=== PATIENT | male | born 1940 | race Caucasian/White ===

== ENCOUNTER 2020-05-31 23:40 | Day surgery (SDCO) | payer MEDICARE ==
[~2020-05-31 23:40] MED LIST: ANTIVERT25 MG PO; ASPIRIN EC81 MG PO; BETAPACE80 MG PO; MIDODRINE HCL10 MG PO; NORCO 5-325 TA1 EACH PO; TAMSULOSIN HCL0.4 MG PO
[2020-06-01 00:54] LABS: BASOPHIL 0.1 % (0-2); EOSINOPHIL 0.9 % (0-7); HCT 33.7 % (42.0-52.0); HGB 10.6 g/dl (13.2-18.0); LYMPHOCYTE 16.1 % (15-48); MCH 30.1 pg (25.0-31.0); MCHC 31.5 g/dL (32.0-36.0); MCV 95.7 fL (78.0-100.0); MONOCYTE 9.3 % (0-12); NEUTROPHIL 73.1 % (41-80); NRBC 0; PLT 126 K/uL (150-400); RBC 3.52 M/uL (4.70-6.00); RDW 13.9 % (11.5-14.0); WBC 8.5 K/uL (4.0-10.5)
[2020-06-01 01:03] LABS: BILIRUBIN NEGATIVE (NEGATIVE); BLOOD 3+ Ery/uL (NEGATIVE); CLARITY CLEAR (CLEAR); COLOR YELLOW (YELLOW); GLUCOSE (U) NORMAL (NORMAL); LEUKOCYTES 2+ Leu/uL (NEGATIVE); NITRITE NEGATIVE (NEGATIVE); PROTEIN NEGATIVE (NEGATIVE); UROBILINOGEN 0.2 mg/dL (0.2-1.0)
[2020-06-01 01:04] LABS: INR 1.12 (0.9-1.2); PROTHROMBIN TIME 13.7 SECONDS (11.4-13.6); PTT 29.5 SECONDS (22.2-34.7)
[2020-06-01 01:10] LABS: BACTERIA 1+; TRANSITIONAL EPITHELIAL CELLS RARE; URINARY WBC 20-50; YEAST PRESENT
[2020-06-01 01:14] LABS: ALBUMIN 3.1 g/dL (3.4-5.0); BILIRUBIN - TOTAL 1.1 mg/dL (0.2-1.0); BUN/CREAT RATIO (CALC) 29.2 RATIO; CREATININE 1.3 mg/dL (0.67-1.17); GLOBULIN (CALCULATION) 3.3 g/dL; MAGNESIUM 2.1 mg/dL (1.8-2.4); TOTAL PROTEIN 6.4 g/dL (6.4-8.2)
[2020-06-01 01:18] LABS: PRO-BNP 545 pg/mL (<450)
[2020-06-01 01:21] LABS: LACTIC ACID 0.3 mmol/L (0.4-1.9)
[2020-06-01] MEDS ORDERED: ANTIVERT25 MG PO (02:37)
[2020-06-01] MEDS ORDERED: NORCO 5-325 TA1 EAC1 PO (03:01)
[2020-06-02 05:50] LABS: BASOPHIL 0.3 % (0-2); EOSINOPHIL 1.1 % (0-7); HCT 33.7 % (42.0-52.0); HGB 10.6 g/dl (13.2-18.0); LYMPHOCYTE 11.3 % (15-48); MCH 30.2 pg (25.0-31.0); MCHC 31.5 g/dL (32.0-36.0); MONOCYTE 10.5 % (0-12); MPV 9.8 fL (6.0-9.5); NEUTROPHIL 76.2 % (41-80); NRBC 0; PLT 136 K/uL (150-400); RBC 3.51 M/uL (4.70-6.00); RDW 13.8 % (11.5-14.0); WBC 9.4 K/uL (4.0-10.5)
[2020-06-02 06:06] LABS: POTASSIUM 3.7 mmol/L (3.5-5.1)
[2020-06-02] MEDS ORDERED: CEFDINIR300 MG PO (15:35)
--- NOTE | 2020-06-02 17:24 | NUR ---
1630 PATIENT FAMILY NOTIFED THIS NURSE THAT THEY WHERE UNABLE TO CARE FOR THE PATIENT AT HOME, DUE TO SON HAVE KNEE AND HIP SURGERY AND REQUEST THAT THE PATIENT BE EVALUATED FOR IN PATIENT REHAB. [address]5 DR. PITT WAS NOTIFED AND CANCELLED THE DISCHARGE HOME, AND NEEDS TO BE EVALUATED BY PT/OT, AND DISCHARGE PLANNING FOR PLACEMENT IN REHAB FACILITY.
[2020-06-03 06:22] LABS: BUN/CREAT RATIO (CALC) 27.4 RATIO; CREATININE 1.13 mg/dL (0.67-1.17); POTASSIUM 3.8 mmol/L (3.5-5.1)
--- NOTE | 2020-06-03 11:35 | NUR ---
ACKNOWLEDGED ORDER FOR ORTHOPEDIC CONSULT WITH DR. GARNETT, SPOKE WITH NONI CASIANO WHO STATED SHE SPOKE WITH DR. GARNETT WHO STATED TO CONTINUE SLING AND SWATHE WITH PT.
--- NOTE | 2020-06-03 12:56 | NUR ---
PT REPORTS HE LIVES WITH SON IZZY SAL; ASSIT WITH [facility]; PLEASE ADVISE OF DISCHARGE NEEDS
--- NOTE | 2020-06-03 14:37 | NUR ---
06/03/2020 Mr. Myrick lives with his son. He has a cane. Kevin Myrick, son, , would like his father to have gisselle prior to returning home. Their robin choice is [facility]. Unfortunately, [facility] is only accepting patient's who live locally and they have a waiting list, per Carlos. A referral has been made to [facility]'s second choice.
[2020-06-04] MEDS ORDERED: NORVASC5 MG PO (13:12)
[2020-06-04] MEDS ORDERED: PANTOPRAZOLE SO40 MG PO (13:15)
== END 2020-06-04 20:35 ==
LOC: FER 23:40 → FMS 06-01 01:50
PROVIDERS: Emergency Medicine; Hospitalist; Internal Medicine; ADMIT Internal Medicine
DX: N30.00 Acute cystitis without hematuria (principal); B96.89 Other specified bacterial agents as the cause of diseases classified elsewhere; E86.0 Dehydration; G31.84 Mild cognitive impairment of uncertain or unknown etiology; G92 Toxic encephalopathy; N17.9 Acute kidney failure, unspecified; R53.81 Other malaise; S42.351A Displaced comminuted fracture of shaft of humerus, right arm, initial encounter for closed fracture; I48.0 Paroxysmal atrial fibrillation; I10 Essential (primary) hypertension; M10.9 Gout, unspecified; K21.9 Gastro-esophageal reflux disease without esophagitis; Z85.038 Personal history of other malignant neoplasm of large intestine; Z79.899 Other long term (current) drug therapy; Z90.49 Acquired absence of other specified parts of digestive tract; Z93.3 Colostomy status; Z20.828 Contact with and (suspected) exposure to other viral communicable diseases; W19.XXXA Unspecified fall, initial encounter; Y92.009 Unspecified place in unspecified non-institutional (private) residence as the place of occurrence of the external cause
CPT/HCPCS: 36415; 70450; 71045; 80048; 80053; 81001; 83605; 83735; 83880; 84145; 84484; 85025; 85610; 85730; 87088; 97110; 97116; 97162; 97530-GP; G0378; J0696; J1650; J7030; U0002

== ENCOUNTER 2020-06-26 16:33 | Inpatient (IN) | payer MEDICARE ==
[~2020-06-26 16:33] MED LIST changes: +CEFDINIR300 MG PO; +NORCO 5-325 TA1 EAC1 PO; +NORVASC5 MG PO; +PANTOPRAZOLE SO40 MG PO
[2020-06-26 17:17] LABS: BASOPHIL 0.1 % (0-2); EOSINOPHIL 0 % (0-7); HCT 41.5 % (42.0-52.0); HGB 12.7 g/dl (13.2-18.0); LYMPHOCYTE 3.5 % (15-48); MCH 28.9 pg (25.0-31.0); MCHC 30.6 g/dL (32.0-36.0); MCV 94.3 fL (78.0-100.0); MONOCYTE 3.6 % (0-12); NEUTROPHIL 91.6 % (41-80); NRBC 0; PLT 100 K/uL (150-400); RDW 13.8 % (11.5-14.0); WBC 14.1 K/uL (4.0-10.5)
[2020-06-26 17:21] LABS: INR 1.21 (0.9-1.2); PROTHROMBIN TIME 14.5 SECONDS (11.4-13.6); PTT 26.4 SECONDS (22.2-34.7)
[2020-06-26 17:31] LABS: ALBUMIN 2.7 g/dL (3.4-5.0); BILIRUBIN - TOTAL 0.9 mg/dL (0.2-1.0); C-REACTIVE PROTEIN 16.6 mg/dL (<=0.90); CREATININE 2.47 mg/dL (0.67-1.17); GLOBULIN (CALCULATION) 4.1 g/dL; POTASSIUM 5.5 mmol/L (3.5-5.1); TOTAL PROTEIN 6.8 g/dL (6.4-8.2)
[2020-06-26 17:35] LABS: PRO-BNP 525 pg/mL (<450)
[2020-06-26 17:37] LABS: LACTIC ACID 1.2 mmol/L (0.4-1.9)
[2020-06-26 18:38] LABS: BILIRUBIN NEGATIVE (NEGATIVE); BLOOD 2+ Ery/uL (NEGATIVE); COLOR YELLOW (YELLOW); GLUCOSE (U) NORMAL (NORMAL); LEUKOCYTES 1+ Leu/uL (NEGATIVE); NITRITE NEGATIVE (NEGATIVE); PROTEIN TRACE (LOW) mg/dL (NEGATIVE); UROBILINOGEN 0.2 mg/dL (0.2-1.0); pH 5.5 (5.0-9.0)
[2020-06-26 18:43] LABS: CLARITY HAZY (CLEAR)
[2020-06-26 18:44] LABS: BACTERIA 1+; SQUAMOUS EPITHELIAL CELLS RARE; YEAST PRESENT
[2020-06-27] MEDS ORDERED: DEXAMETHASONE 2M2 MG PO (02:30)
[2020-06-27] MEDS ORDERED: IMODIUM2 MG PO (02:32)
[2020-06-27] MEDS ORDERED: PRILOSEC20 MG PO (02:33)
[2020-06-27] MEDS ORDERED: ONDANSETRON ODT4 MG PO (02:35)
[2020-06-27] MEDS ORDERED: PROMETHEGA12.5 MG/SU PR (02:37)
[2020-06-27] MEDS ORDERED: TYLENOL325 M2 PO (02:39)
[2020-06-27] MEDS ORDERED: ASCORBIC ACID500 MG PO (02:40)
[2020-06-27] MEDS ORDERED: VITAMIN D3 COM1 EACH PO (02:45)
[2020-06-27] MEDS ORDERED: ZINC SULFATE220 M1 PO (02:46)
[2020-06-27 04:39] LABS: BASOPHIL 0.1 % (0-2); EOSINOPHIL 0 % (0-7); HCT 36.6 % (42.0-52.0); HGB 11.2 g/dl (13.2-18.0); LYMPHOCYTE 3.2 % (15-48); MCH 29.5 pg (25.0-31.0); MCHC 30.6 g/dL (32.0-36.0); MCV 96.3 fL (78.0-100.0); MONOCYTE 2.8 % (0-12); MPV 11.3 fL (6.0-9.5); NEUTROPHIL 92.9 % (41-80); NRBC 0; RDW 14.1 % (11.5-14.0); WBC 12.4 K/uL (4.0-10.5)
[2020-06-27 04:53] LABS: ALBUMIN 2.2 g/dL (3.4-5.0); BILIRUBIN - TOTAL 0.7 mg/dL (0.2-1.0); BUN/CREAT RATIO (CALC) 39.7 RATIO; CREATININE 1.84 mg/dL (0.67-1.17); GLOBULIN (CALCULATION) 3.6 g/dL; POTASSIUM 4.3 mmol/L (3.5-5.1); TOTAL PROTEIN 5.8 g/dL (6.4-8.2)
[2020-06-27 04:54] LABS: PLT 89 K/uL (150-400)
[2020-06-27 12:10] LABS: BUN/CREAT RATIO (CALC) 39.2 RATIO; CREATININE 1.58 mg/dL (0.67-1.17)
--- NOTE | 2020-06-27 14:57 | NUR ---
06/27/20 Mr. Myrick is from [facility]. Nursing reports that family does not wish for him to return. Nursing provided the telephone # of daughter, Lawanda Trujillo, , stating Ms. Trujillo was looking at possible placement at [facility] in [place]. Ms. Trujillo was reached by telephone. She reports the plans to have changed and she believes her brother, Kevin Myrick will be taking Mr. Myrick to his home. A voicemail was left for Mr. Myrick requesting a return call.
[2020-06-27 18:43] LABS: BUN/CREAT RATIO (CALC) 40.6 RATIO; CREATININE 1.43 mg/dL (0.67-1.17); POTASSIUM 4.4 mmol/L (3.5-5.1)
[2020-06-28 05:32] LABS: HCT 39.8 % (42.0-52.0); MCH 29.1 pg (25.0-31.0); MCHC 30.2 g/dL (32.0-36.0); MCV 96.6 fL (78.0-100.0); MPV 11.3 fL (6.0-9.5); RBC 4.12 M/uL (4.70-6.00); WBC 11.3 K/uL (4.0-10.5)
[2020-06-28 05:47] LABS: BUN/CREAT RATIO (CALC) 36.4 RATIO; CREATININE 1.29 mg/dL (0.67-1.17)
--- NOTE | 2020-06-28 13:17 | NUR ---
06/28 Discharge is anticipated for 06/30. Pt will require a hospital bed, 02 at 3 L, and HH. Several messages have been left for Mr. Myrick' son, Kevin Myrick, , requesting a return call to discuss preferences re: DIETETICS DIRECTOR and DME suppliers.
--- NOTE | 2020-06-28 15:39 | NUR ---
06/28/20 Telephone conversation with Kevin Myrick, son, . Patient's care needs were discussed. Mr. Myrick, son, continues to wish for his father to be discharged to his home. Discharge is anticipated as early as 06/30. A referral has been made to [facility] per family choice. A hospital bed, wc and 02 at 3 L has been ordered from [facility]. The family was advised to call [facility] for delivery of concentrator and hospital bed upon arrival home. The w/c and portable 02 tank will be delivered to the hospital. The hospital bed and 02 concentrator will be delivered to the home. Please remind the family to call [facility] when they arrive home. Please notify [facility] at [phone] when patient is discharged.
[2020-06-29 06:47] LABS: HCT 38.7 % (42.0-52.0); HGB 11.9 g/dl (13.2-18.0); MCH 29.2 pg (25.0-31.0); MCHC 30.7 g/dL (32.0-36.0); MCV 94.9 fL (78.0-100.0); MPV 11.5 fL (6.0-9.5); RBC 4.08 M/uL (4.70-6.00); RDW 13.5 % (11.5-14.0); WBC 9.3 K/uL (4.0-10.5)
[2020-06-29 07:18] LABS: BUN/CREAT RATIO (CALC) 32.4 RATIO; CREATININE 1.08 mg/dL (0.67-1.17); POTASSIUM 4.2 mmol/L (3.5-5.1)
[2020-06-30 06:08] LABS: HCT 37.2 % (42.0-52.0); HGB 11.6 g/dl (13.2-18.0); MCH 29.2 pg (25.0-31.0); MCHC 31.2 g/dL (32.0-36.0); MCV 93.7 fL (78.0-100.0); MPV 11.7 fL (6.0-9.5); RBC 3.97 M/uL (4.70-6.00); RDW 13.2 % (11.5-14.0); WBC 7.1 K/uL (4.0-10.5)
[2020-06-30 06:26] LABS: BUN/CREAT RATIO (CALC) 25.5 RATIO; CREATININE 0.94 mg/dL (0.67-1.17); POTASSIUM 3.7 mmol/L (3.5-5.1)
[2020-06-30 15:06] LABS: BUN/CREAT RATIO (CALC) 23.4 RATIO; CREATININE 1.07 mg/dL (0.67-1.17); POTASSIUM 3.7 mmol/L (3.5-5.1)
[2020-07-01 06:04] LABS: HCT 34.8 % (42.0-52.0); HGB 10.8 g/dl (13.2-18.0); MCH 28.8 pg (25.0-31.0); MCV 92.8 fL (78.0-100.0); MPV 11.8 fL (6.0-9.5); RBC 3.75 M/uL (4.70-6.00); RDW 13.2 % (11.5-14.0); WBC 7.5 K/uL (4.0-10.5)
[2020-07-01 06:32] LABS: BUN/CREAT RATIO (CALC) 22.6 RATIO; CREATININE 0.93 mg/dL (0.67-1.17); POTASSIUM 3.4 mmol/L (3.5-5.1)
--- NOTE | 2020-07-01 10:52 | NUR ---
07/01/20 Kevin Myrick was informed that the hospital bed will be delivered prior on the day of discharge prior to the discharge.
--- NOTE | 2020-07-01 15:39 | NUR ---
07/01/20 Mr. Myrick, son, was informed that his father is on 8L with an oximizer and asked if he continues to be confident in caring for his father at home. He was informed that [facility] will acept patient back per Yesica Zheng. Mr. Myrick continues to wish [facility]. He also reports his wishes for Mr. Myrick to be a full code. - [facility] reports to be able to provided 02 at 8L with an oximizer. - A report was given to Dr. Gray.
--- NOTE | 2020-07-03 13:57 | NUR ---
07/03/20 Discharge is anticipated for 07/05/20. Per ROCHELLE Hernandez, permission, a family teaching with [facility] has been arranged for 07/04/20 at 1:00 - Report given to USMAN Bella /RN.
[2020-07-04 17:39] LABS: BASOPHIL 0.3 % (0-2); EOSINOPHIL 0 % (0-7); HCT 37.4 % (42.0-52.0); HGB 11.8 g/dl (13.2-18.0); LYMPHOCYTE 2.6 % (15-48); MCH 29.2 pg (25.0-31.0); MCHC 31.6 g/dL (32.0-36.0); MCV 92.6 fL (78.0-100.0); MONOCYTE 2.8 % (0-12); MPV 11.5 fL (6.0-9.5); NEUTROPHIL 91.4 % (41-80); NRBC 0; PLT 192 K/uL (150-400); RBC 4.04 M/uL (4.70-6.00); RDW 13.7 % (11.5-14.0)
[2020-07-04 17:42] LABS: WBC 11.2 K/uL (4.0-10.5)
[2020-07-04 18:27] LABS: BILIRUBIN - TOTAL 0.5 mg/dL (0.2-1.0); MAGNESIUM 1.8 mg/dL (1.8-2.4); PHOSPHORUS 2.7 mg/dL (2.6-4.7); POTASSIUM 3.8 mmol/L (3.5-5.1)
--- NOTE | 2020-07-05 11:01 | NUR ---
07/05/20 [facility] was informed of today's discharge. [facility] had delivered portble 02 and w/c to the hospital. Kevin Myrick, son, has taken the items home. [facility] delivered the concentrator and hospital bed to home.
[2020-07-05] MEDS ORDERED: ASCORBIC ACID500 MG PO (13:15)
[2020-07-05] MEDS ORDERED: ONDANSETRON ODT4 MG PO (13:15)
[2020-07-05] MEDS ORDERED: ASPIRIN EC81 MG PO (13:15)
[2020-07-05] MEDS ORDERED: MEDROL 4MG DOSEP4 MG PO (13:15)
[2020-07-05] MEDS ORDERED: VITAMIN D3 COM1 EACH PO (13:15)
[2020-07-05] MEDS ORDERED: PROMETHEGA12.5 MG/SU PR (13:15)
[2020-07-05] MEDS ORDERED: PRILOSEC20 MG PO (13:15)
[2020-07-05] MEDS ORDERED: NORVASC5 MG PO (13:15)
[2020-07-05] MEDS ORDERED: LIDOCAINE PAIN1 EACH TOP (14:21)
== END 2020-07-05 15:53 | disposition home health service (06) | DRG 177 ==
LOC: FER 16:33 → FICU 23:14 → FTCU 07-03 18:54
PROVIDERS: Emergency Medicine; Hospitalist; Nurse Practitioner; ADMIT Internal Medicine
PROC: 8E0ZXY6 Isolation (ICD-10-PCS; principal; 2020-06-26)
PROC: XW033E5 Introduction of Remdesivir Anti-infective into Peripheral Vein, Percutaneous Approach, New Technology Group 5 (ICD-10-PCS; 2020-06-26)
PROC: 3E0333Z Introduction of Anti-inflammatory into Peripheral Vein, Percutaneous Approach (ICD-10-PCS; 2020-06-26)
DX: U07.1 COVID-19 (principal); J12.82 Pneumonia due to coronavirus disease 2019; J96.01 Acute respiratory failure with hypoxia; G93.41 Metabolic encephalopathy; N30.00 Acute cystitis without hematuria; E87.1 Hypo-osmolality and hyponatremia; E87.0 Hyperosmolality and hypernatremia; N17.9 Acute kidney failure, unspecified; L89.151 Pressure ulcer of sacral region, stage 1; I48.0 Paroxysmal atrial fibrillation; M10.9 Gout, unspecified; F03.90 Unspecified dementia, unspecified severity, without behavioral disturbance, psychotic disturbance, mood disturbance, and anxiety; Z85.038 Personal history of other malignant neoplasm of large intestine; Z90.49 Acquired absence of other specified parts of digestive tract; E87.5 Hyperkalemia; E86.0 Dehydration; I16.0 Hypertensive urgency; S42.301D Unspecified fracture of shaft of humerus, right arm, subsequent encounter for fracture with routine healing; X58.XXXD Exposure to other specified factors, subsequent encounter
CPT/HCPCS: 36415; 36600; 70450; 70551; 71045; 74230; 80048; 80053; 81001; 82803; 83605; 83735; 83880; 84100; 84145; 84295; 84484; 85025; 85610; 85730; 86140; 87040; 87088; 92526; 92611; 93005; 94762; 96374; 96375; 96376; 97110; 97162; 97167; 97530; 97530-GP; 97535; C9399; J0696; J1100; J1630; J1650; J2060; J3360; J3490; J7030; J7050; J7070; J7120; J8540

== ENCOUNTER 2020-07-12 12:04 | Inpatient (IN) | payer MEDICARE ==
[~2020-07-12 12:04] MED LIST changes: +ASCORBIC ACID500 MG PO; +DEXAMETHASONE 2M2 MG PO; +IMODIUM2 MG PO; +LIDOCAINE PAIN1 EACH TOP; +MEDROL 4MG DOSEP4 MG PO; +ONDANSETRON ODT4 MG PO; +PRILOSEC20 MG PO; +PROMETHEGA12.5 MG/SU PR; +TYLENOL325 M2 PO; +VITAMIN D3 COM1 EACH PO; +ZINC SULFATE220 M1 PO
[2020-07-12 13:45] LABS: BILIRUBIN NEGATIVE (NEGATIVE); BLOOD 1+ Ery/uL (NEGATIVE); CLARITY CLEAR (CLEAR); COLOR YELLOW (YELLOW); GLUCOSE (U) NORMAL (NORMAL); LEUKOCYTES 1+ Leu/uL (NEGATIVE); NITRITE NEGATIVE (NEGATIVE); PROTEIN NEGATIVE (NEGATIVE); SPECIFIC GRAVITY 1.025 (1.001-1.030); UROBILINOGEN 0.2 mg/dL (0.2-1.0)
[2020-07-12 14:23] LABS: BACTERIA TRACE; URINARY WBC 20-50
[2020-07-12 14:35] LABS: BASOPHIL 0.4 % (0-2); EOSINOPHIL 1.2 % (0-7); HCT 38.7 % (42.0-52.0); LYMPHOCYTE 9.6 % (15-48); MCH 29.7 pg (25.0-31.0); MCV 95.8 fL (78.0-100.0); MONOCYTE 6.3 % (0-12); MPV 10.4 fL (6.0-9.5); NEUTROPHIL 79.3 % (41-80); NRBC 0; PLT 125 K/uL (150-400); RBC 4.04 M/uL (4.70-6.00); RDW 15.5 % (11.5-14.0)
[2020-07-12 14:54] LABS: LACTIC ACID 1.4 mmol/L (0.4-1.9)
[2020-07-12 15:00] LABS: ALBUMIN 2.1 g/dL (3.4-5.0); BILIRUBIN - TOTAL 0.6 mg/dL (0.2-1.0); BUN/CREAT RATIO (CALC) 28.7 RATIO; CREATININE 0.94 mg/dL (0.67-1.17); GLOBULIN (CALCULATION) 3.1 g/dL; POTASSIUM 3.7 mmol/L (3.5-5.1); TOTAL PROTEIN 5.2 g/dL (6.4-8.2)
[2020-07-13 09:24] LABS: BASOPHIL 0.2 % (0-2); EOSINOPHIL 1.4 % (0-7); HCT 37.3 % (42.0-52.0); HGB 11.3 g/dl (13.2-18.0); LYMPHOCYTE 11.1 % (15-48); MCH 29.2 pg (25.0-31.0); MCHC 30.3 g/dL (32.0-36.0); MCV 96.4 fL (78.0-100.0); MONOCYTE 6.5 % (0-12); MPV 10.2 fL (6.0-9.5); NEUTROPHIL 79.1 % (41-80); NRBC 0; PLT 108 K/uL (150-400); RBC 3.87 M/uL (4.70-6.00); RDW 15.9 % (11.5-14.0); WBC 8.4 K/uL (4.0-10.5)
[2020-07-13 09:34] LABS: ALBUMIN 1.9 g/dL (3.4-5.0); BILIRUBIN - TOTAL 0.9 mg/dL (0.2-1.0); BUN/CREAT RATIO (CALC) 23.3 RATIO; CREATININE 0.86 mg/dL (0.67-1.17); GLOBULIN (CALCULATION) 2.9 g/dL; POTASSIUM 3.6 mmol/L (3.5-5.1); TOTAL PROTEIN 4.8 g/dL (6.4-8.2)
[2020-07-14 03:27] LABS: BASOPHIL 0.3 % (0-2); EOSINOPHIL 2.9 % (0-7); HCT 34.7 % (42.0-52.0); HGB 10.6 g/dl (13.2-18.0); LYMPHOCYTE 13.6 % (15-48); MCH 29.2 pg (25.0-31.0); MCHC 30.5 g/dL (32.0-36.0); MCV 95.6 fL (78.0-100.0); MONOCYTE 8.3 % (0-12); MPV 10.3 fL (6.0-9.5); NEUTROPHIL 73.3 % (41-80); NRBC 0; PLT 106 K/uL (150-400); RBC 3.63 M/uL (4.70-6.00); RDW 15.6 % (11.5-14.0)
[2020-07-14 03:41] LABS: ALBUMIN 1.7 g/dL (3.4-5.0); BILIRUBIN - TOTAL 1.2 mg/dL (0.2-1.0); BUN/CREAT RATIO (CALC) 14.3 RATIO; C-REACTIVE PROTEIN 2.4 mg/dL (<=0.90); CREATININE 0.91 mg/dL (0.67-1.17); GLOBULIN (CALCULATION) 2.8 g/dL; POTASSIUM 3.4 mmol/L (3.5-5.1); TOTAL PROTEIN 4.5 g/dL (6.4-8.2)
[2020-07-15 07:17] LABS: BASOPHIL 0.3 % (0-2); EOSINOPHIL 2.1 % (0-7); HCT 33.9 % (42.0-52.0); HGB 10.7 g/dl (13.2-18.0); LYMPHOCYTE 12.4 % (15-48); MCH 30.1 pg (25.0-31.0); MCHC 31.6 g/dL (32.0-36.0); MCV 95.5 fL (78.0-100.0); MONOCYTE 9.2 % (0-12); MPV 10.3 fL (6.0-9.5); NEUTROPHIL 74.8 % (41-80); NRBC 0; PLT 108 K/uL (150-400); RBC 3.55 M/uL (4.70-6.00); RDW 15.3 % (11.5-14.0); WBC 6.6 K/uL (4.0-10.5)
[2020-07-15 07:36] LABS: BUN/CREAT RATIO (CALC) 8.4 RATIO; C-REACTIVE PROTEIN 1.9 mg/dL (<=0.90); CREATININE 0.95 mg/dL (0.67-1.17); POTASSIUM 3.1 mmol/L (3.5-5.1)
[2020-07-15] MEDS ORDERED: CIPRO500 MG PO (14:06)
[2020-07-15] MEDS ORDERED: METRONIDAZOLE500 MG PO (14:06)
--- NOTE | 2020-07-15 14:12 | NUR ---
07/15/20 Mr. Myrick lives at home with his son, Kevin Myrick. He is current with [facility]. [facility] was notified of admission, likely discharge for today, and a request was made to A Medicaid Waiver evaluation. - Mr. Myrick has a hospital bed, w/c and home 02. Kevin Myrick, son was informed of the possible discahrge. - Dr. Chapman reports patient to qualify for EMS transport. Report given to MS YARI Harper.
--- NOTE | 2020-07-15 16:23 | NUR ---
07/15/20 Kevin Myrick reports to be unable to afford medications, Cipro and Flagyl. A voucher was provided through the Prescription Assistance program.
--- NOTE | 2020-07-15 18:33 | NUR ---
1600 S/W IZZY (SON/POA) VIA TELEPHONE. D/C INSTRUCTIONS GIVEN.
== END 2020-07-15 19:08 | disposition home health service (06) | DRG 391 ==
LOC: FER 12:04 → FMS 16:54
PROVIDERS: Emergency Medicine; Nurse Practitioner; ADMIT Internal Medicine
PROC: 8E0ZXY6 Isolation (ICD-10-PCS; principal; 2020-07-12)
DX: K57.32 Diverticulitis of large intestine without perforation or abscess without bleeding (principal); U07.1 COVID-19; N39.0 Urinary tract infection, site not specified; K52.9 Noninfective gastroenteritis and colitis, unspecified; F03.90 Unspecified dementia, unspecified severity, without behavioral disturbance, psychotic disturbance, mood disturbance, and anxiety; I48.0 Paroxysmal atrial fibrillation; I10 Essential (primary) hypertension; M10.9 Gout, unspecified; Z85.038 Personal history of other malignant neoplasm of large intestine; Z85.828 Personal history of other malignant neoplasm of skin; Z87.891 Personal history of nicotine dependence
CPT/HCPCS: 36415; 73020; 73060; 80048; 80053; 81001; 83605; 83690; 85025; 86140; 87040; 87088; 93005; J2543; J7030; Q9967; U0002